=== PATIENT | female | born 1950 | race Caucasian/White ===

== ENCOUNTER 2018-03-29 11:18 | Emergency (ER) | payer MEDICAID ==
[2018-03-29] MEDS: KETOROLAC 60 MG INJ IM (12:17)
== END 2018-03-29 13:36 | disposition home or self-care (01) ==
LOC: FTE 11:18
DX: M54.12 Radiculopathy, cervical region (principal); Z85.3 Personal history of malignant neoplasm of breast
CPT/HCPCS: 72040; 96372; 99284-25